=== PATIENT | female | born 1950 | race Caucasian/White ===

== ENCOUNTER 2022-05-09 02:23 | Emergency (ER) | payer MEDICARE ==
[2022-05-09] MEDS ORDERED: Amoxicillin/Potassium Clav 875 MG TAB ONE (02:52)
== END 2022-05-09 03:08 | disposition home or self-care (01) ==
LOC: MADERS 02:23
DX: U07.1 COVID-19 (principal); H92.01 Otalgia, right ear; E11.9 Type 2 diabetes mellitus without complications; Z79.82 Long term (current) use of aspirin
CPT/HCPCS: 99283; U0003; U0005